=== PATIENT | male | born 1965 | race Caucasian/White ===

== ENCOUNTER 2016-09-12 15:27 | Observation (INO) | payer OTHER ==
[~2016-09-12] VITALS: Ht 180.3 cm; Wt 99.0 kg
[2016-09-12] VITALS (8 sets, daily range): BP systolic 105–141; BP diastolic 63–82; PULSE 80–92; RESP 18; TEMP 97.6–98.3; O2SAT 96–98
[2016-09-12] MEDS ORDERED: SODIUM CHLORID 0.9% 500 ML INJ 500 ML IV ONE (16:00)
[2016-09-12] MEDS ORDERED: ASPIRIN 81 MG CHEW TAB PO ONE (16:00)
[2016-09-12] MEDS ORDERED: SODIUM CHLORIDE 0.9% FLUSH 10 ML FLUSH IVF PRN (16:00)
[2016-09-12] MEDS ORDERED: NITROGLYCERIN 0.4 MG SL 25 TABS/BTL SL ONE (16:00)
--- NOTE | 2016-09-12 16:08 | PD ---
HPI Chief Complaint: Cardiac Complaint Time Seen by Provider: 15:58 Travel History International Travel<30 days: No Contact w/Intl Traveler<30days: No Traveled to known affect area: No History of Present Illness HPI Patient is 50-year-old male presenting to the emergency department for evaluation of chest pain. Patient states pain started at 9 PM last night, it is right upper chest with radiation to the midsternal area. The pain is exacerbated with deep respirations and radiates to his throat and shoulder. He woke up with a pressure like feeling on his chest, he woke his up at 3 AM and at that time took an acid licensed chemical spray technician and ibuprofen, there was no relief of his symptoms with these medications. He denies any diaphoresis, nausea, vomiting, weakness, abdominal pain. At rest pain is a 6 out of 10. Patient with his primary care provider this morning and was sent to emergency department for further evaluation. PFSH Past Medical History Diabetes: Yes Patient Takes Glucophage: Yes Endocrine: Yes (TESTOSTERONE REPLACEMENT) Gastrointestinal Disorders: Yes (IBS) GERD: Yes Past Surgical History Other Surgery: Yes (FEMUR) Social History Alcohol Use: Yes (on occasion) Tobacco Use: No Substance Use: No Allergies-Medications (Allergen,Severity, Reaction): Coded Allergies: Penicillin (Verified Allergy, Unknown, 09/12/16) Reported Meds & Prescriptions Reported Meds & Active Scripts Active Reported Metformin (Metformin HCl) 500 Mg Tab 500 Mg PO ACHS SLIDING SCALE PRN With a meal Testosterone Cypionate Inj (Testosterone Cypionate) 200 Mg/Ml Inj 200 Mg IM Q14D Review of Systems Except as stated in HPI: all other systems reviewed are Neg General / Constitutional: No: Fever Eyes: No: Blurred Vision HENT: No: Headaches Cardiovascular: Positive: Chest Pain or Discomfort Respiratory: No: Shortness of Breath Gastrointestinal: No: Nausea, Vomiting, Abdominal Pain Musculoskeletal: No: Myalgias Neurologic: No: Weakness, Dizziness, Syncope, Focal Abnormalities, Change in Mentation Physical Exam Narrative GENERAL: Well-developed, well-nourished, alert male. Resting comfortably in no acute distress. SKIN: Warm and dry. HEAD: Atraumatic. Normocephalic. EYES: Pupils equal and round. No scleral icterus. No injection or drainage. ENT: No nasal bleeding or discharge. Mucous membranes pink and moist. NECK: Trachea midline. No JVD. CARDIOVASCULAR: Regular rate and rhythm. RESPIRATORY: No accessory muscle use. Clear to auscultation. Breath sounds equal bilaterally. GASTROINTESTINAL: Abdomen soft, non-tender, nondistended. Hepatic and splenic margins not palpable. MUSCULOSKELETAL: Extremities without clubbing, cyanosis, or edema. No obvious deformities. NEUROLOGICAL: Awake and alert. No obvious cranial nerve deficits. Motor grossly within normal limits. Five out of 5 muscle strength in the arms and legs. Normal speech. PSYCHIATRIC: Appropriate mood and affect; insight and judgment normal. Data Data Last Documented VS Vital Signs Date Time Temp Pulse Resp B/P Pulse Ox O2 Delivery O2 Flow Rate FiO2 09/12/16 15:52 88 134/78 128/75 09/12/16 15:52 96 Room Air 09/12/16 15:52 18 09/12/16 15:28 98.3 Orders Electrocardiogram (09/12/16 15:48) Ckmb (Isoenzyme) Profile (09/12/16 15:48) Complete Blood Count With Diff (09/12/16 15:48) Comprehensive Metabolic Panel (09/12/16 15:48) Magnesium (Mg) (09/12/16 15:48) Prothrombin Time / Inr (Pt) (09/12/16 15:48) Act Partial Throm Time (Ptt) (09/12/16 15:48) Troponin I (09/12/16 15:48) Lipase (09/12/16 15:48) Chest, Single Ap (09/12/16 15:48) Ecg Monitoring (09/12/16 15:48) Bilateral Bp Monitoring (09/12/16 15:48) Iv Access Insert/Monitor (09/12/16 15:48) Oximetry (09/12/16 15:48) Oxygen Administration (09/12/16 15:48) Aspirin Chew (Aspirin Chew) (09/12/16 16:00) Sodium Chloride 0.9% Flush (Ns Flush) (09/12/16 16:00) Nitroglycerin Sl (Nitrostat Sl) (09/12/16 16:00) Sodium Chlorid 0.9% 500 Ml Inj (Ns 500 M (09/12/16 16:00) Creatine Kinase (Cpk) (09/12/16 15:48) CKMB (09/12/16 15:50) CKMB% (09/12/16 15:50) Admit Order (Ed Use Only) (09/12/16 16:51) Labs Laboratory Tests Test 09/12/16 15:50 White Blood Count 8.2 TH/MM3 Red Blood Count 5.05 MIL/MM3 Hemoglobin 14.6 GM/DL Hematocrit 44.6 % Mean Corpuscular Volume 88.3 FL Mean Corpuscular Hemoglobin 28.9 PG Mean Corpuscular Hemoglobin 32.7 % Concent Red Cell Distribution Width 14.3 % Platelet Count 178 TH/MM3 Mean Platelet Volume 8.5 FL Neutrophils (%) (Auto) 60.8 % Lymphocytes (%) (Auto) 25.6 % Monocytes (%) (Auto) 11.8 % Eosinophils (%) (Auto) 1.1 % Basophils (%) (Auto) 0.7 % Neutrophils # (Auto) 5.0 TH/MM3 Lymphocytes # (Auto) 2.1 TH/MM3 Monocytes # (Auto) 1.0 TH/MM3 Eosinophils # (Auto) 0.1 TH/MM3 Basophils # (Auto) 0.1 TH/MM3 CBC Comment DIFF FINAL Differential Comment Prothrombin Time 10.6 SEC Prothromb Time International 1.0 RATIO Ratio Activated Partial 26.8 SEC Thromboplast Time Sodium Level 140 MEQ/L Potassium Level 3.9 MEQ/L Chloride Level 105 MEQ/L Carbon Dioxide Level 28.6 MEQ/L Anion Gap 6 MEQ/L Blood Urea Nitrogen 16 MG/DL Creatinine 0.95 MG/DL Estimat Glomerular Filtration 84 ML/MIN Rate Random Glucose 96 MG/DL Calcium Level 8.9 MG/DL Magnesium Level 2.3 MG/DL Total Bilirubin 0.4 MG/DL Aspartate Amino Transf 17 U/L (AST/SGOT) Alanine Aminotransferase 40 U/L (ALT/SGPT) Alkaline Phosphatase 43 U/L Total Creatine Kinase 132 U/L Creatine Kinase MB 3.1 NG/ML Troponin I LESS THAN 0.02 NG/ML Total Protein 7.9 GM/DL Albumin 4.0 GM/DL Lipase 130 U/L MDM Medical Decision Making Medical Screen Exam Complete: Yes Emergency Medical Condition: Yes Interpretation(s) Last Impressions Chest X-Ray 09/12/16 1548 Signed Impressions: Service Date/Time: Monday, September 12, 2016 15:46 - CONCLUSION: Underinflated examination with atelectasis at the lung bases. Otherwise, no acute finding is identified. Erich Sanz MD Laboratory Tests Test 09/12/16 15:50 White Blood Count 8.2 TH/MM3 Red Blood Count 5.05 MIL/MM3 Hemoglobin 14.6 GM/DL Hematocrit 44.6 % Mean Corpuscular Volume 88.3 FL Mean Corpuscular Hemoglobin 28.9 PG Mean Corpuscular Hemoglobin 32.7 % Concent Red Cell Distribution Width 14.3 % Platelet Count 178 TH/MM3 Mean Platelet Volume 8.5 FL Neutrophils (%) (Auto) 60.8 % Lymphocytes (%) (Auto) 25.6 % Monocytes (%) (Auto) 11.8 % Eosinophils (%) (Auto) 1.1 % Basophils (%) (Auto) 0.7 % Neutrophils # (Auto) 5.0 TH/MM3 Lymphocytes # (Auto) 2.1 TH/MM3 Monocytes # (Auto) 1.0 TH/MM3 Eosinophils # (Auto) 0.1 TH/MM3 Basophils # (Auto) 0.1 TH/MM3 CBC Comment DIFF FINAL Differential Comment Prothrombin Time 10.6 SEC Prothromb Time International 1.0 RATIO Ratio Activated Partial 26.8 SEC Thromboplast Time Sodium Level 140 MEQ/L Potassium Level 3.9 MEQ/L Chloride Level 105 MEQ/L Carbon Dioxide Level 28.6 MEQ/L Anion Gap 6 MEQ/L Blood Urea Nitrogen 16 MG/DL Creatinine 0.95 MG/DL Estimat Glomerular Filtration 84 ML/MIN Rate Random Glucose 96 MG/DL Calcium Level 8.9 MG/DL Magnesium Level 2.3 MG/DL Total Bilirubin 0.4 MG/DL Aspartate Amino Transf 17 U/L (AST/SGOT) Alanine Aminotransferase 40 U/L (ALT/SGPT) Alkaline Phosphatase 43 U/L Total Creatine Kinase 132 U/L Troponin I LESS THAN 0.02 NG/ML Total Protein 7.9 GM/DL Albumin 4.0 GM/DL Lipase 130 U/L Vital Signs Date Time Temp Pulse Resp B/P Pulse Ox O2 Delivery O2 Flow Rate FiO2 09/12/16 15:52 88 134/78 128/75 09/12/16 15:52 96 Room Air 09/12/16 15:52 18 96 Room Air 09/12/16 15:45 83 18 134/78 96 Room Air 09/12/16 15:45 89 18 98 Room Air 09/12/16 15:28 98.3 92 18 141/82 97 Room Air Differential Diagnosis ACS versus USA versus metabolic abnormality versus pleurisy versus costochondritis versus rhabdomyolysis versus GERD versus other Narrative Course Patient is 50-year-old male that presented to the emergency department for evaluation of chest pain. Patient is a history of type 2 diabetes, currently diet controlled. He has no history of hypertension and is a former smoker. Patient's family physician history is positive for mother and father with heart attacks in their 60s. Labs and imaging ordered and pending, IV access established, patient placed on telemetry monitoring and continuous pulse oximetry. CBC with no acute abnormalities identified Chemistries unremarkable Lipase is normal Cardiac enzymes are negative 1 set Chest x-ray shows under inflated examination with atelectasis at lung bases, otherwise there is no acute findings. Chest x-ray read by radiologist. EKG read by my attending physician shows NST with normal axis. Pt was given ASA 324mg and nitro SL x 1 dose. Pt continued to have pain. Requested acid medication. GI cocktail ordered as well as protonix. Pt will be admitted to the [facility] for further evaluation. Patient agreeable. Orders placed. Diagnosis Primary Impression: Chest pain Qualified Code: R07.9 - Chest pain, unspecified type Admitting Information Admitting Physician Requests: Observation Condition: Stable Elyse Steven Sep 12, 2016 16:08
--- NOTE | 2016-09-12 16:13 | RADRPT ---
EXAM DATE/TIME: 09/12/2016 15:46 [facility] COMPARISON: No previous studies available for comparison. INDICATIONS : Chest pain, short of breath. MEDICAL HISTORY : Diabetes SURGICAL HISTORY : None. ENCOUNTER: Initial ACUITY: 1 day PAIN SCORE: 4/10 LOCATION: Bilateral chest FINDINGS: Underinflated AP view of the chest demonstrates a normal-sized cardiac silhouette. There is mild atel ectasis at the lung bases. No effusion, consolidation, or pneumothorax is identified. Bones and soft tissues demonstrate no acute finding. CONCLUSION: Underinflated examination with atelectasis at the lung bases. Otherwise, no acute finding is identifi ed. Erich Sanz MD on September 12, 2016 at 16:10 Board Certified Radiologist. This report was verified electronically.
[2016-09-12 16:18] LABS: BASOPHIL # 0.1 TH/MM3 (0-0.2); BASOPHIL % 0.7 % (0.0-2.0); EOSINOPHIL # 0.1 TH/MM3 (0-0.4); EOSINOPHIL % 1.1 % (0.0-4.0); HEMATOCRIT 44.6 % (39.0-51.0); HEMO FLAGS DIFF FINAL; LYMPH % 25.6 % (9.0-44.0); LYMPHOCYTE # 2.1 TH/MM3 (1.0-4.8); MEAN CELL VOLUME 88.3 FL (80.0-100.0); MEAN CORPUSCULAR HEMOGLOBIN 28.9 PG (27.0-34.0); MEAN CORPUSCULAR HGB CONC 32.7 % (32.0-36.0); MONO % 11.8 % (0.0-8.0); NEUT % 60.8 % (16.0-70.0); PLATELET COUNT 178 TH/MM3 (150-450); RED BLOOD COUNT 5.05 MIL/MM3 (4.50-5.90); RED CELL DISTRIBUTION WIDTH 14.3 % (11.6-17.2); WHITE BLOOD COUNT 8.2 TH/MM3 (4.0-11.0)
[2016-09-12] MEDS ORDERED: METF500T PO (16:31)
[2016-09-12] MEDS ORDERED: TEST200I12 IM (16:31)
[2016-09-12 16:33] LABS: APTT (PATIENT) 26.8 SEC (24.3-30.1); PROTHROMBIN TIME - PATIENT 10.6 SEC (9.8-11.6)
[2016-09-12 16:41] LABS: ALT (GPT) 40 U/L (12-78); ANION GAP 6 MEQ/L (5-15); AST (GOT) 17 U/L (15-37); BICARBONATE 28.6 MEQ/L (21.0-32.0); BLOOD UREA NITROGEN 16 MG/DL (7-18); CHLORIDE 105 MEQ/L (98-107); GLOMERULAR FILTRATION RATE 84 ML/MIN (>89); MAGNESIUM 2.3 MG/DL (1.5-2.5); POTASSIUM 3.9 MEQ/L (3.5-5.1); SODIUM (NA) 140 MEQ/L (136-145)
[2016-09-12 16:45] LABS: ALKALINE PHOSPHATASE 43 U/L (45-117); CREATINE KINASE 132 U/L (39-308); TOTAL BILIRUBIN ADULT 0.4 MG/DL (0.2-1.0)
[2016-09-12 16:59] LABS: CKMB 3.1 NG/ML (0.5-3.6)
[2016-09-12] MEDS ORDERED: ALUMINUM/MAGNESIUM/SIMETH 30 ML CUP PO ONE (17:15)
[2016-09-12] MEDS ORDERED: LIDOCAINE VISCOUS 2% SOLN 15 ML UDC PO ONE (17:15)
[2016-09-12] MEDS ORDERED: PANTOPRAZOLE SODIUM 40 MG VIAL IV PUSH ONE (17:15)
--- NOTE | 2016-09-12 18:45 | EKG ---
Date Performed: 09/12/2016 Time Performed: 15:42:38 PTAGE: 50 years EKG: Sinus rhythm ST ELEVATION, PROBABLY EARLY REPOLARIZATION BORDERLINE ECG NO PREVIOUS TRACING DOCTOR: Pascale Chen Interpretating Date/Time 09/12/2016 18:44:49
[2016-09-12 19:19] LABS: CREATINE KINASE 104 U/L (39-308)
[2016-09-12] MEDS ORDERED: ACETAMINOPHEN 500 MG CPLT PO PRN (20:00)
[2016-09-12] MEDS ORDERED: ONDANSETRON HCL 4 MG/2 ML VIAL IV PRN (20:00)
[2016-09-12] MEDS ORDERED: NITROGLYCERIN 0.4 MG SL 25 TABS/BTL SL PRN (20:00)
[2016-09-12] MEDS: SODIUM CHLORIDE 0.9% FLUSH 10 ML FLUSH IV FLUSH SCH (21:45)
[2016-09-12 22:55] LABS: CREATINE KINASE 96 U/L (39-308)
[2016-09-13 00:12] VITALS: PULSE 77
[2016-09-13 03:59] VITALS: PULSE 77
[2016-09-13 04:00] VITALS: BP 112/67; PULSE 74; RESP 16; TEMP 97.6; O2SAT 96
[2016-09-13 07:34] VITALS: BP 121/74; PULSE 76; RESP 21; TEMP 97.5; O2SAT 96
[2016-09-13 07:43] VITALS: O2SAT 96
[2016-09-13 08:00] VITALS: PULSE 72
[2016-09-13] MEDS ORDERED: ASPIRIN 325 MG TAB PO SCH (09:00)
--- NOTE | 2016-09-13 09:05 | HHI.HP ---
HPI Primary Care Physician Hayden Betancourt MD Chief Complaint Chest pressure History of Present Illness Mr. Thompson is a 50-year-old male patient with a known medical history of type 2 diabetes and GERD who presented to the ED with complaints of chest pressure. Patient states that Sunday night he ate a rather greasy, fried meal for dinner and noticed roughly a half hour after eating he developed a chest pain in his mid-sternum occasionally radiating up his neck. Later that evening he stated the pain worsened to a 10/10 on pain scale, and characterized the pain as a pushing or pressure feeling with intermittent sharp pains, stating "he felt like his sternum felt like it was being pressed out his back at times". He states he suffers from severe acid reflux at times but aforementioned pain is different than his GERD and has never experienced this type of pain before. Denies any associated abdominal pain, nausea or vomiting. Does state that the pain worsened with inspiration and laying down. Patient attempted taking Ibuprofen and acid safety person with no relief, but rather the pain continued to worsen over the course of the next day. Patient went to work for several hours in the morning and eventually presented to his PCP when symptoms did not reside and was sent here to the ED for further evaluation. He currently denies any chest pain or discomfort. Received a GI cocktail and Protonix in the ED. Pain is not reproducible to palpation. Review of Systems Consitutional: COMPLAINS OF: Chills Cardiovascular: COMPLAINS OF: Chest pain Gastrointestinal: COMPLAINS OF: Reflux Past Family Social History Allergies: Coded Allergies: Penicillin (Verified Allergy, Unknown, 09/12/16) Past Medical History GERD Type 2 diabetes on Metformin Inflammatory bowel disease Past Surgical History Femur surgery Hernia repair with mesh Colonoscopy x 5 years ago Reported Medications Reported Meds & Active Scripts Active Reported Metformin (Metformin HCl) 500 Mg Tab 500 Mg PO ACHS SLIDING SCALE PRN With a meal Testosterone Cypionate Inj (Testosterone Cypionate) 200 Mg/Ml Inj 200 Mg IM Q14D Active Ordered Medications Current Medications Medications (Trade) Dose Ordered Sig/Jayesh Route Start Time Stop Time Status Last Admin (NS Flush) 2 ml UNSCH PRN IVF 09/12/16 16:00 09/12/16 16:02 (NS Flush) 2 ml BID IV FLUSH 09/12/16 21:00 09/12/16 21:45 (Tylenol) 500 mg Q4H PRN PO 09/12/16 20:00 (Zofran Inj) 4 mg Q6H PRN IV 09/12/16 20:00 (Nitrostat Sl) 0.4 mg Q5M PRN SL 09/12/16 20:00 (Aspirin) 325 mg DAILY PO 09/13/16 09:00 Family History Patient's sister and grandmother both have a history of colon cancer. Maternal family medical history significant for [place] at the age of 65. Paternal family medical history significant for [place] in his 60's. Social History Patient is . Denies any current tobacco use. Admits to occasional alcohol use. Denies any illicit drug use. Does state he is relatively active. Has changed his diet to the [employer] diet, attempting to loose weight and exercise more. Owns his own [employer] business. Previous cardiac testing Denies any previous cardiac testing. Physical Exam Vital Signs Vital Signs Date Time Temp Pulse Resp B/P Pulse Ox O2 Delivery O2 Flow Rate FiO2 09/13/16 07:43 96 21 09/13/16 07:34 97.5 76 21 121/74 96 09/13/16 04:00 97.6 74 16 112/67 96 09/13/16 03:59 77 09/13/16 00:12 77 09/12/16 23:59 97.6 80 18 119/68 97 09/12/16 22:06 98 09/12/16 19:46 97.9 84 18 105/63 96 09/12/16 19:30 87 09/12/16 18:15 85 09/12/16 17:35 21 09/12/16 15:52 88 134/78 128/75 09/12/16 15:52 96 Room Air 09/12/16 15:52 18 96 Room Air 09/12/16 15:45 83 18 134/78 96 Room Air 09/12/16 15:45 89 18 98 Room Air 09/12/16 15:28 98.3 92 18 141/82 97 Room Air Physical Exam GENERAL: Alert WN, WD, NAD, pleasant, male. HEAD: NC, AT NECK: Supple, no masses, trachea midline CV: RRR, no rub, gallop, or JVD. RESP: Clear lungs throughout bilateral, no crackles, wheeze, rhonchi, symmetrical chest rise, nonlabored, able to speak in full sentences ABD: Soft, NT, ND, no masses, positive bowel tones, negative Rae sign EXT: Pulses +24, no dependent edema MS: Normal tone 4 extremities, nontender, no obvious deformities, full range of motion NEURO: CN II through CN XII grossly intact, motor strength 5/5, gait WNL PSYCH: A+O 3, pleasant, appropriate speech, appropriate mood and affect, insight and judgment SKIN: Normal turgor, normal texture, no lesions, no rashes, brisk cap refill, even hair distribution Laboratory Laboratory Tests Test 09/12/16 09/12/16 09/12/16 15:50 18:30 21:45 White Blood Count 8.2 Red Blood Count 5.05 Hemoglobin 14.6 Hematocrit 44.6 Mean Corpuscular Volume 88.3 Mean Corpuscular Hemoglobin 28.9 Mean Corpuscular Hemoglobin 32.7 Concent Red Cell Distribution Width 14.3 Platelet Count 178 Mean Platelet Volume 8.5 Neutrophils (%) (Auto) 60.8 Lymphocytes (%) (Auto) 25.6 Monocytes (%) (Auto) 11.8 Eosinophils (%) (Auto) 1.1 Basophils (%) (Auto) 0.7 Neutrophils # (Auto) 5.0 Lymphocytes # (Auto) 2.1 Monocytes # (Auto) 1.0 Eosinophils # (Auto) 0.1 Basophils # (Auto) 0.1 CBC Comment DIFF FINAL Differential Comment Prothrombin Time 10.6 Prothromb Time International 1.0 Ratio Activated Partial 26.8 Thromboplast Time Sodium Level 140 Potassium Level 3.9 Chloride Level 105 Carbon Dioxide Level 28.6 Anion Gap 6 Blood Urea Nitrogen 16 Creatinine 0.95 Estimat Glomerular Filtration 84 Rate Random Glucose 96 Calcium Level 8.9 Magnesium Level 2.3 Total Bilirubin 0.4 Aspartate Amino Transf 17 (AST/SGOT) Alanine Aminotransferase 40 (ALT/SGPT) Alkaline Phosphatase 43 Total Creatine Kinase 132 104 96 Creatine Kinase MB 3.1 2.0 Troponin I LESS THAN 0.02 LESS THAN 0.02 LESS THAN 0.02 Total Protein 7.9 Albumin 4.0 Lipase 130 Result Diagram: 09/12/16 1550 09/12/16 1550 Imaging Last 48 hours Impressions Chest X-Ray 09/12/16 1548 Signed Impressions: Service Date/Time: Monday, September 12, 2016 15:46 - CONCLUSION: Underinflated examination with atelectasis at the lung bases. Otherwise, no acute finding is identified. Erich Sanz MD Course EKG Nonspecific ST elevation Assessment and Plan Assessment and Plan #1 Atypical chest pain: most likely related to GERD. Admitted to chest pain center with serial EKGs and serial troponins ordered for ruling out purposes. Serial EKGs showing slight nonspecific ST elevation likely related to early repolarization and serial troponins unremarkable. CXR showing some atelectasis, otherwise unremarkable. Dr. Mckeon has seen patient and ordered for ESR to rule out any possibility of pericarditis. ESR 9. Pericarditis unlikely. Discharge ordered, pain not related to cardiac, with recommendations to follow up with PCP. #2 GERD: Was given a GI cocktail and Protonix IV in the ED. Prescription for Omeprazole 20 mg PO daily. #3 Diabetes: Patient is taking Metformin 500 mg PO PRN at home before meals if eating a high carb meal. Recommendations for patient to stop taking Metformin in this manner and to follow up with PCP for further diabetic work up and treatment. Patient is stable and agreeable to the plan. Jaclyn Burden Sep 13, 2016 09:05 Jaclyn Burden Sep 13, 2016 09:05
[2016-09-13] MEDS: SODIUM CHLORIDE 0.9% FLUSH 10 ML FLUSH IV FLUSH SCH (09:11)
--- NOTE | 2016-09-13 10:33 | HHI.DCPOC ---
Discharge Care Plan Diagnosis: (1) Atypical chest pain (2) GERD (gastroesophageal reflux disease) Goals to Promote Your Health * To prevent worsening of your condition and complications * To maintain your health at the optimal level Directions to Meet Your Goals Take your medications as prescribed Follow your dietary instruction Follow activity as directed Keep your appointments as scheduled Take your immunizations and boosters as scheduled If your symptoms worsen call your PCP, if no PCP go to Urgent Care Center or Emergency Room Smoking is Dangerous to Your Health. Avoid second hand smoke Call the 24-hour hour crisis hotline for domestic abuse at Jaclyn Burden Sep 13, 2016 10:33
[2016-09-13] MEDS ORDERED: OMEP20TA PO (10:34)
--- NOTE | 2016-09-13 16:37 | EKG ---
Date Performed: 09/12/2016 Time Performed: 22:25:39 PTAGE: 50 years EKG: Sinus rhythm NORMAL ECG PREVIOUS TRACING : 09/12/2016 18.51 Since previous tracing, no significant change noted DOCTOR: Hi Mckeon Interpretating Date/Time 09/13/2016 16:35:23
--- NOTE | 2016-09-13 16:37 | EKG ---
Date Performed: 09/12/2016 Time Performed: 18:51:38 PTAGE: 50 years EKG: Sinus rhythm MINIMAL VOLTAGE CRITERIA FOR LVH, CONSIDER NORMAL VARIANT BORDERLINE ECG PREVIOUS TRACING : 09/12/2016 15.42 Since previous tracing, no significant change noted DOCTOR: Hi Mckeon Interpretating Date/Time 09/13/2016 16:35:33
== END 2016-09-13 11:33 | disposition home or self-care (01) ==
LOC: NEPE 15:27 → NEDA 16:52 → NEPGCP 17:24
PROVIDERS: ADMIT Internal Medicine Interventional Cardiology; ATTEND Internal Medicine Interventional Cardiology
DX: R07.89 Other chest pain (principal); R06.02 Shortness of breath; R68.83 Chills (without fever); J98.11 Atelectasis; K21.9 Gastro-esophageal reflux disease without esophagitis; E11.9 Type 2 diabetes mellitus without complications; K58.9 Irritable bowel syndrome, unspecified; Z79.84 Long term (current) use of oral hypoglycemic drugs
CPT/HCPCS: 71010; 80053; 82550; 82552; 83690; 83735; 84484; 85025; 85610; 85652; 85730; 93005; 96374; 99285; C9113; G0378; J7040